=== PATIENT | male | born 1995 | race Caucasian/White ===

== ENCOUNTER 2022-07-26 17:39 | Emergency (ER) | payer OTHER, SELFPAY ==
[2022-07-26 17:55] VITALS: BP 136/88; PULSE 106; RESP 16; TEMP 36.5; O2SAT 96; BMI 34.9
[2022-07-26] MEDS: LIDOCAINE 2% INJ SDV 5 ML (18:15)
[2022-07-26] MEDS: ONDANSETRON 4 MG ODT SL (18:15)
[2022-07-26] MEDS: KETOROLAC 30 MG/ML VIAL IM (18:20)
--- NOTE | 2022-07-26 18:45 | ED_ITS ---
HPI - Wound/Laceration <BRAD Rodriguez - Last Filed: 07/26/22 18:51> General Chief Complaint: Wound/Laceration Stated Complaint: Finger lac Time Seen by Provider: 07/26/22 17:55 Source: patient Mode of arrival: Ambulatory History of Present Illness HPI narrative: This is a 26-year-old male presents to the emergency department after he accidentally cut his left hand with a sharp knife while trying to open a plastic package. He is right-hand dominant, states that he cut the base of his left 2nd digit and had bleeding that was difficult to control. He denies any anticoagulants, denies any sensation changes, states that he is in the and has had all of his vaccinations. He has a pressure dressing in place currently. States it is wound is approximately 3 cm. Related Data Allergies Allergy/AdvReac Type Severity Reaction Status Date / Time No Known Drug Allergies Allergy Verified 07/26/22 17:55 Review of Systems <BRAD Rodriguez - Last Filed: 07/26/22 18:51> Review of Systems ROS Unobtainable: All systems reviewed & are unremarkable except as noted in HPI and below Patient History <BRAD Rodriguez - Last Filed: 07/26/22 18:51> Social History Smoking Status: Never smoker Smoking Status: Never smoker alcohol intake frequency: 3 or more drinks per day Alcohol type: beer and hard liquor Substance Use Type: does not use Exam <BRAD Rodriguez - Last Filed: 07/26/22 18:51> Narrative Exam Narrative: Left hand: Laceration of the base of the palmar aspect of his left 2nd digit, linear, not contaminated, oozing blood, subcutaneous tissue showing, patient able to flex and extend against resistance, neurovascularly intact, brisk cap refill, intact sensation without deficit, without foreign body Initial Vital Signs Initial Vital Signs: Vital Signs Temperature 97.7 F 07/26/22 17:55 Pulse Rate 106 H 07/26/22 17:55 Respiratory Rate 16 07/26/22 17:55 Blood Pressure 136/88 07/26/22 17:55 Pulse Oximetry 96 07/26/22 17:55 Oxygen Delivery Method 07/26/22 17:55 <Drake Dykes DO - Last Filed: 07/27/22 06:27> Initial Vital Signs Initial Vital Signs: Vital Signs Temperature 97.7 F 07/26/22 17:55 Pulse Rate 106 H 07/26/22 17:55 Respiratory Rate 16 07/26/22 17:55 Blood Pressure 136/88 07/26/22 17:55 Pulse Oximetry 96 07/26/22 17:55 Oxygen Delivery Method 07/26/22 17:55 Procedures <BRAD Rodriguez - Last Filed: 07/26/22 18:51> Laceration Repair Laceration 1: Site: hand Side (If applicable): left Size (cm): 3 Description: linear and clean Depth: simple, single layer and involves muscle layer Local Anesthetic: lidocaine 2% Amount of anesthesia used (mL): 2 Pre-repair: wound explored, irrigated extensively and deep structures intact Skin layer closed with: nylon Skin layer suture size: 5-0 Number of sutures: 6 Technique: simple, interrupted and horizontal mattress Subcutaneous layer closed with: chromic gut Subcutaneous layer suture size: 4-0 Number of sutures: 2 Technique: simple, interrupted Course <BRAD Rodriguez - Last Filed: 07/26/22 18:51> Orders Ordered: Discontinued Medications Hydrocodone Bitart/Acetaminophen (Hydrocodone/Acet 5/325 Tablet) 1 tab PO NOW ONE Stop: 07/26/22 18:17 Last Admin: 07/26/22 18:57 Dose: Not Given Documented By: TIANA Ketorolac Tromethamine (Ketorolac 30 Mg/Ml Vial) 30 mg IM NOW ONE Stop: 07/26/22 18:16 Last Admin: 07/26/22 18:20 Dose: 30 mg Documented By: TIANA Lidocaine HCl (Lidocaine 2% Inj Mdv 20ml) 20 ml INJ INTRA-OP ONE Stop: 07/26/22 17:57 Last Admin: 07/26/22 18:15 Dose: Not Given Documented By: TIANA(2) Lidocaine HCl (Lidocaine 2% (Pf) 2 Ml) 2 ml INJ INTRA-OP ONE Stop: 07/26/22 17:57 Last Admin: 07/26/22 18:15 Dose: Not Given Documented By: TIANA(2) Ondansetron HCl (Ondansetron 4 Mg Odt) 4 mg SL NOW ONE Stop: 07/26/22 18:12 Last Admin: 07/26/22 18:15 Dose: 4 mg Documented By: RLS(2) Vital Signs Vital signs: Vital Signs - 8 hr 07/26/22 17:55 Temperature 97.7 F Pulse Rate 106 H Respiratory Rate 16 Blood Pressure 136/88 Pulse Oximetry 96 Oxygen Delivery Method Room Air <Drake Dykes DO - Last Filed: 07/27/22 06:27> Orders Ordered: Discontinued Medications Hydrocodone Bitart/Acetaminophen (Hydrocodone/Acet 5/325 Tablet) 1 tab PO NOW ONE Stop: 07/26/22 18:17 Last Admin: 07/26/22 18:57 Dose: Not Given Documented By: RLS Ketorolac Tromethamine (Ketorolac 30 Mg/Ml Vial) 30 mg IM NOW ONE Stop: 07/26/22 18:16 Last Admin: 07/26/22 18:20 Dose: 30 mg Documented By: TIANA Lidocaine HCl (Lidocaine 2% Inj Mdv 20ml) 20 ml INJ INTRA-OP ONE Stop: 07/26/22 17:57 Last Admin: 07/26/22 18:15 Dose: Not Given Documented By: RLS(2) Lidocaine HCl (Lidocaine 2% (Pf) 2 Ml) 2 ml INJ INTRA-OP ONE Stop: 07/26/22 17:57 Last Admin: 07/26/22 18:15 Dose: Not Given Documented By: RLS(2) Ondansetron HCl (Ondansetron 4 Mg Odt) 4 mg SL NOW ONE Stop: 07/26/22 18:12 Last Admin: 07/26/22 18:15 Dose: 4 mg Documented By: RLS(2) Vital Signs Vital signs: Vital Signs - 8 hr 07/26/22 17:55 Temperature 97.7 F Pulse Rate 106 H Respiratory Rate 16 Blood Pressure 136/88 Pulse Oximetry 96 Oxygen Delivery Method Room Air MDM - Wound/Laceration <BRAD Rodriguez - Last Filed: 07/26/22 18:51> MDM Narrative Medical decision making narrative: This is a 26-year-old male presents emergency department with a laceration to the base of his left index finger that he sustained while trying to open a plastic package with knife. 3 cm laceration on the palmar aspect, bleeding was controlled with pressure, wound was thoroughly irrigated without suspicion for tendon injury, full range of motion, neurovascularly intact, mobility intact against resistance both with extension and flexion. Patient is right-hand dominant, tetanus is up-to-date, sutures were placed and wound was well approximated with 2 deep sutures into the subcutaneous and muscle layer to reduce tension on the wound. Patient understands to change his dressing twice a day, keep it clean, follow-up with his primary care provider as needed and return for new or worsening symptoms. His sutures given removed in 10 days, patient states understanding to splinting his flexor aspect with a Band-Aid and will follow-up accordingly. Patient is appropriate and amenable to discharge ho mt. Vital signs are stable on repeat examination is unremarkable. Patient has been informed of results. Patient has been given strict return to ER precautions for any new or worsening symptoms. Patient understands to follow up closely with outpatient providers as instructed. Patient understands plan and agrees to discharge home. All questions and concerns answered at this time. Discharge Plan Departure Patient Disposition: Home Clinical Impression: Laceration Instructions: How to Care for a Laceration After Repair, DI for Laceration Repair Activity Restrictions/Additional Instructions: *You have been diagnosed with finger laceration. Please use topical antibiotic ointment and cover with a Band-Aid until your sutures can be removed in 10 days. Please avoid bending your finger much or doing hard work with your left hand. Please try to avoid soaking in water but okay to take showers and cover with Band-Aids afterwards. Please return for any redness or streaking up your hand, worsening pain, worsening drainage, or signs of a bigger infection. Please follow-up with [facility] if you have abnormal mobility, sensation, or need orthopedic evaluation. *What to do: *Please continue to take your regular medications as directed. [ ] New medication prescriptions sent to your pharmacy: [ ] [ ] New medication written as a paper prescription [x ] No new medications given *Please follow up with your primary care provider in 2-3 days, call for an appointment. Let them know you were seen in the Emergency Department and that we asked that you be seen for follow-up. We will electronically transmit a record of today's note if your PCP is in our system *If you do not have a primary care provider please contact [phone] to establish care with one of the [facility] primary care providers. *Return to Emergency Department if you should have any new, worsening, or concerning symptoms, such as [fever greater than 101F, chills, worsening pain, persistent vomiting or other bothersome symptoms]. Visit Report Forms: Patient Portal/API <Drake Dykes DO - Last Filed: 07/27/22 06:27> Cosign ED Attending Cosignature Attestation: I was immediately available in the department for consultation. This documentation has been reviewed and I agree with assessment and plan. Supervised by Drake Dykes DO
== END 2022-07-26 18:52 | disposition home or self-care (01) ==
PROVIDERS: Emergency Provider Nurse Practitioner Critical Care Medicine
DX: S61.412A Laceration without foreign body of left hand, initial encounter (principal); W26.0XXA Contact with knife, initial encounter
CPT/HCPCS: 12002; 96372; 99283; 99284; J1885